=== PATIENT | female | born 1985 | race Caucasian/White ===

== ENCOUNTER → 2019-10-02 | Outpatient (CLI) | payer OTHER ==
[~2019-10-02] MED LIST: ACHYD1T PO; BIRTH CONTROL PILLS; CYCL10TA45 PO; IBP800T PO
--- NOTE | 2019-10-02 13:26 | Diagnostic Imaging Report ---
INDICATION: Palpable lump in the upper outer right breast. COMPARISON: No prior studies are available for comparison. TECHNIQUE: 2D and 3D unilateral right diagnostic mammography was performed. FINDINGS: The right breast is heterogeneously dense, limiting the sensitivity of mammography. A BB marker was placed at the area of palpable abnormality in the upper-outer right breast. No underlying abnormality is seen. No mass or malignant appearing microcalcifications are seen. The right axilla is unremarkable. IMPRESSION: No mammographic features suspicious for malignancy are identified. Even so, directed sonographic interrogation of the area of palpable abnormality in the upper-outer right breast is recommended and will be performed today. ACR BI-RADS Category 0: Incomplete. (Needs additional imaging evaluation). Result letter will be mailed to the patient. Note: At least 10% of breast cancer is not imaged by mammography. Dictated by: Dictated on workstation # [id number]
--- NOTE | 2019-10-02 14:28 | Diagnostic Imaging Report ---
INDICATION: Palpable lump right breast. Correlation is made with diagnostic mammogram earlier the same day. Sonographic interrogation of the area of lump upper outer right breast was performed. No sonographic abnormality is seen. No solid or cystic mass is detected. IMPRESSION: BI-RADS Category 1 No sonographic abnormality is detected. Continued close clinical and self breast exam is recommended to confirm stability of the palpable abnormality. ACR BI-RADS Category 1: Negative. Dictated by: Dictated on workstation # [id number]
== END ==
LOC: RAD 12:59
PROVIDERS: ATTEND Nurse Practitioner Family
DX: N63.11 Unspecified lump in the right breast, upper outer quadrant (principal)

== ENCOUNTER → 2019-10-10 | Outpatient (CLI) | payer OTHER ==
--- NOTE | 2019-10-10 11:06 | Diagnostic Imaging Report ---
PROCEDURE: US Non-OB pelvis comp/trans. TECHNIQUE: Multiple real-time grayscale images were obtained of the pelvis in various projections endovaginally. Transabdominal imaging was also performed. INDICATION: Abnormal uterine bleeding. FINDINGS: Uterus is anteverted measuring 6.8 x 4.1 x 4.5 cm. The endometrium is 5 mm in thickness. There is a cervical nabothian cyst measuring 8 mm in size. No myometrial mass is detected. The right ovary measures 3.0 x 1.9 x 1.6 cm, and the left ovary measures 3.3 x 1.8 x 2.2 cm. The ovaries contain small follicles. There is blood flow to both ovaries. No adnexal mass is detected. There appears to be some trace free fluid in the posterior cul-de-sac. IMPRESSION: Unremarkable pelvic ultrasound. Dictated by: Dictated on workstation # [id number]
== END ==
LOC: RAD 09:52
PROVIDERS: ATTEND Obstetrics & Gynecology
DX: Z93.8 Other artificial opening status (principal)
CPT/HCPCS: 76830; 76856